=== PATIENT | male | born 1940 | race Caucasian/White ===

== ENCOUNTER 2016-10-13 03:19 | Emergency (ER) | payer OTHER ==
[~2016-10-13] VITALS: Ht 167.6 cm; Wt 103.7 kg
[~2016-10-13 03:19] MED LIST: ADULT LOW DOSE81 M1 PO; ASPIRIN325 MG PO; ASPIRIN81 M2 PO; ATIVAN1 M1 PO; ATIVAN1 MG PO; ATORVASTATIN CA20 MG PO; BENADRYL25 MG PO; COMPAZINE10 MG PO; COUMADIN1 MG PO; COUMADIN5 MG PO; DULCOLAX5 MG PO; ENDOCET 5-3251 EACH PO; ERYTHROMYC1 APPLICAT BOTH EYES; FIBER GUMMIES1 EACH PO; FLEXERIL10 MG PO; GABAPENTIN300 MG PO; GLUCOPHAGE1000 MG PO; GLUCOPHAGE500 MG PO; HYDROCHLOROTH12.5 M1 PO; HYDROCHLOROTHIA25 MG PO; HYDROCORTISONE28 G2 TP; IBUPROFEN600 MG PO; LIPITOR10 MG PO; LISINOPRIL10 MG PO; LORAZEPAM1 MG PO; LORTAB 10 MG-3473 ML PO; LOVENOX100 MG/1 M SC; MELATIN3 MG PO; MIRALAX255 GM PO; NEURONTIN300 MG PO; NEXIUM20 MG PO; NEXIUM40 MG PO; PAROXETINE HCL40 MG PO; PAXIL20 M1 PO; PAXIL20 MG PO; PAXIL40 MG PO; PERCOCET 5/31 TABLET PO; PRILOSEC20 MG PO; PRINIVIL10 MG PO; SENNA-TIME S T1 EACH PO; VALIUM2 MG PO; WARFARIN SODIUM1 MG PO; XARELTO20 MG PO; ZANTAC150 MG PO; ZESTRIL,PRINIVI10 M1 PO; ZOLOFT100 MG PO
[2016-10-13 05:39] VITALS: BP 119/62
== END 2016-10-13 05:41 | disposition home or self-care (01) ==
LOC: EME 03:19
PROC: 2W38X1Z Immobilization of Right Upper Extremity using Splint (ICD-10-PCS; principal; 2016-10-13)
DX: M25.521 Pain in right elbow (principal); R22.31 Localized swelling, mass and lump, right upper limb; I10 Essential (primary) hypertension; W18.30XA Fall on same level, unspecified, initial encounter; Z87.442 Personal history of urinary calculi; Z86.73 Personal history of transient ischemic attack (TIA), and cerebral infarction without residual deficits; Z85.01 Personal history of malignant neoplasm of esophagus; Z86.718 Personal history of other venous thrombosis and embolism; Z86.711 Personal history of pulmonary embolism; Z95.828 Presence of other vascular implants and grafts; Z87.891 Personal history of nicotine dependence
CPT/HCPCS: 73080; 99281; 99283

== ENCOUNTER → 2016-11-24 | Outpatient (CLI) | payer OTHER | END | disposition home or self-care (01) | LOC: NUC 09:26 | DX: M15.0 Primary generalized (osteo)arthritis (principal); Z96.651 Presence of right artificial knee joint; Z87.81 Personal history of (healed) traumatic fracture | CPT/HCPCS: 78315; A9503 ==